=== PATIENT | female | born 2000 | race African-American/Black ===

== ENCOUNTER 2022-10-01 14:29 | Emergency (ER) | payer SELFPAY ==
[~2022-10-01] VITALS: Ht 165.1 cm; Wt 91.0 kg
[2022-10-01] MEDS ORDERED: IBUPROFEN 600MG TABLET PO ONE (18:30)
[2022-10-01 19:11] VITALS: BP 162/113
[2022-10-01] MEDS ORDERED: IBUP-2029 MT (19:50)
== END 2022-10-01 20:10 | disposition home or self-care (01) ==
LOC: ER 15:08
DX: M54.2 Cervicalgia (principal); M25.562 Pain in left knee; V43.62XA Car passenger injured in collision with other type car in traffic accident, initial encounter; Y93.89 Activity, other specified; Y92.488 Other paved roadways as the place of occurrence of the external cause
CPT/HCPCS: 71111; 72040; 73562; 99284